=== PATIENT | male | born 1965 | race Caucasian/White ===

== ENCOUNTER 2019-10-02 10:45 | Inpatient (IN) ==
[2019-10-02] MEDS ORDERED: ASPIRIN 325 MG TABLET PO STA (11:33)
[2019-10-02] MEDS ORDERED: ENOXAPARIN 100 MG/ML SYRINGE SUBCUT STA (11:33)
[2019-10-02 11:50] LABS: Basophils # 0.1 10*3/uL (0.0-0.2); Basophils % 0.5 % (0.0-0.8); Eosinophils # 0.3 10*3/uL (0.0-0.87); Eosinophils % 2.4 % (0.00-10.9); Hematocrit 47.6 VOL% (42.0-52.0); Immature Granulocytes % 0.3 %; Immature Granulocytes Absolute 0.03 #; Lymphocytes # 3.8 10*3/uL (1.4-4.0); Lymphocytes % 34.1 % (21.2-54.2); Mean Corpuscular HGB Conc 33.6 GM/DL (32-36); Mean Corpuscular Volume 90.3 FL (87-102); Mean Platelet Volume 9.6 FL (9.6-12.0); Monocytes % 4.5 % (1.7-12.7); Neutrophils % 58.2 % (38.7-73.9); Platelet Count 223 T/CUMM (130-400); Red Blood Count 5.27 MC/CUMM (3.8-5.5); Red Cell Distribution Width 13.2 % (9.3-17.3)
[2019-10-02 11:55] LABS: PT Patient Result 10.4 SECS (9.6-12.2)
[2019-10-02 12:04] LABS: Albumin 3.3 G/DL (3.4-5.0); Bilirubin,Total 0.8 MG/DL (0.2-1.0); Calcium 8.5 MG/DL (8.5-10.1); Osmolality,Calculated 283.5 MOS/KG (273-304); Total Protein 6.7 G/DL (6.4-8.3)
[2019-10-02] MEDS ORDERED: ALBUTEROL/IPRATROPIUM 3 ML NEB RESP TX STA (12:18)
[2019-10-02] MEDS ORDERED: ONDANSETRON 4 MG/2 ML VIAL IV PRN (12:32)
[2019-10-02] MEDS ORDERED: ACETAMINOPHEN 325 MG TABLET PO PRN (12:32)
[2019-10-02] MEDS ORDERED: CALCIUM CARBONATE CHEW 500 MG TABLET PO PRN (12:39)
[2019-10-02] MEDS: ALBUTEROL/IPRATROPIUM 3 ML NEB RESP TX SCH ×2 (13:43→19:50)
[2019-10-02] MEDS ORDERED: DEXTROSE 10% 25 GM/250 ML BAG IV PRN (13:49)
[2019-10-02] MEDS ORDERED: GLUCAGON 1 MG VIAL IM PRN (13:49)
[2019-10-02] MEDS ORDERED: INFLUENZA VIRUS VACCINE 0.5 ML SYRINGE IM ONE (16:04)
[2019-10-02] MEDS: NICOTINE 14 MG/24 HR PATCH TRANSDERM SCH (16:42)
[2019-10-02] MEDS: methylPREDNISolone SOD SUC 40 MG/1 ML VIAL IV SCH (16:42)
[2019-10-02] MEDS: GABAPENTIN 600 MG TABLET PO SCH ×2 (16:42→22:10)
[2019-10-02] MEDS: INSULIN LISPRO 100 UNIT/ML SUBCUT SCH ×2 (18:46→22:17)
[2019-10-02 19:34] LABS: Troponin I 0.025 NG/ML (0.00-0.045)
[2019-10-02] MEDS ORDERED: LEVALBUTEROL 1.25 MG/3 ML NEB RESP TX PRN (21:10)
[2019-10-02] MEDS: DILTIAZEM 30 MG TABLET PO SCH (21:35)
[2019-10-02] MEDS: ATORVASTATIN 40 MG TABLET PO SCH (22:09)
[2019-10-03] MEDS: methylPREDNISolone SOD SUC 40 MG/1 ML VIAL IV SCH ×2 (02:55→15:13)
[2019-10-03 04:58] LABS: Basophils % 0.2 % (0.0-0.8); Eosinophils % 0.1 % (0.00-10.9); Hematocrit 45.6 VOL% (42.0-52.0); Immature Granulocytes % 0.4 %; Immature Granulocytes Absolute 0.06 #; Lymphocytes # 2.3 10*3/uL (1.4-4.0); Lymphocytes % 16.6 % (21.2-54.2); Mean Corpuscular HGB Conc 32.9 GM/DL (32-36); Mean Platelet Volume 9.7 FL (9.6-12.0); Monocytes % 2.4 % (1.7-12.7); Neutrophils % 80.3 % (38.7-73.9); Platelet Count 222 T/CUMM (130-400); Red Blood Count 5.01 MC/CUMM (3.8-5.5); Red Cell Distribution Width 13.2 % (9.3-17.3); White Blood Count 13.9 T/CUMM (4-12)
[2019-10-03 05:30] LABS: Calcium 8.7 MG/DL (8.5-10.1); Osmolality,Calculated 282.8 MOS/KG (273-304)
[2019-10-03] MEDS ORDERED: ASPIRIN EC 81 MG TABLET PO SCH (09:00)
[2019-10-03] MEDS ORDERED: METOPROLOL SUCCINATE XL 25 MG TABLET PO SCH (09:00)
[2019-10-03] MEDS: GABAPENTIN 600 MG TABLET PO SCH ×3 (09:09→20:44)
[2019-10-03] MEDS: PANTOPRAZOLE 40 MG TABLET PO SCH (09:10)
[2019-10-03] MEDS: DILTIAZEM 30 MG TABLET PO SCH (09:11)
[2019-10-03] MEDS: CLOPIDOGREL 75 MG TABLET PO SCH (09:12)
[2019-10-03] MEDS: INSULIN LISPRO 100 UNIT/ML SUBCUT SCH ×4 (09:12→20:45)
[2019-10-03] MEDS: FUROSEMIDE 40 MG TABLET PO SCH (09:12)
[2019-10-03] MEDS: NICOTINE 14 MG/24 HR PATCH TRANSDERM SCH (09:13)
[2019-10-03] MEDS: lisinopriL 10 MG TABLET PO SCH (09:15)
[2019-10-03] MEDS ORDERED: METOPROLOL SUCCINATE XL 25 MG TABLET PO ONE (11:09)
[2019-10-03] MEDS: APIXABAN 5 MG TABLET PO SCH ×2 (12:41→20:44)
[2019-10-03] MEDS ORDERED: METOPROLOL TARTRATE 5 MG/5 ML VIAL IV PRN (13:54)
[2019-10-03] MEDS ORDERED: ZALEPLON 5 MG CAPSULE PO PRN (20:34)
[2019-10-03] MEDS: ATORVASTATIN 40 MG TABLET PO SCH (20:44)
[2019-10-03] MEDS ORDERED: INSULIN GLARGINE 100 UNIT/ML SUBCUT SCH (21:00)
[2019-10-04] MEDS: methylPREDNISolone SOD SUC 40 MG/1 ML VIAL IV SCH (01:37)
[2019-10-04 04:44] LABS: Hematocrit 44.4 VOL% (42.0-52.0); Hemoglobin 14.9 GM/DL (14.0-18.0); Immature Granulocytes % 0.7 %; Immature Granulocytes Absolute 0.15 #; Lymphocytes # 2.7 10*3/uL (1.4-4.0); Lymphocytes % 12.9 % (21.2-54.2); Mean Corpuscular HGB Conc 33.6 GM/DL (32-36); Mean Corpuscular Volume 90.4 FL (87-102); Mean Platelet Volume 10.1 FL (9.6-12.0); Monocytes % 2.6 % (1.7-12.7); Neutrophils % 83.8 % (38.7-73.9); Platelet Count 222 T/CUMM (130-400); Red Blood Count 4.91 MC/CUMM (3.8-5.5); Red Cell Distribution Width 13.3 % (9.3-17.3); White Blood Count 20.6 T/CUMM (4-12)
[2019-10-04 05:13] LABS: Hypochromasia Slight; Lymphocytes 12 % (20-55); Platelet Estimate Normal; Segmented Neutrophils 85 % (50-85); Total Cells Counted 100
[2019-10-04 05:22] LABS: Calcium 8.9 MG/DL (8.5-10.1)
[2019-10-04] MEDS: GABAPENTIN 600 MG TABLET PO SCH (08:39)
[2019-10-04] MEDS: NICOTINE 14 MG/24 HR PATCH TRANSDERM SCH (08:40)
[2019-10-04] MEDS: PANTOPRAZOLE 40 MG TABLET PO SCH (08:40)
[2019-10-04] MEDS: lisinopriL 10 MG TABLET PO SCH (08:40)
[2019-10-04] MEDS: INSULIN LISPRO 100 UNIT/ML SUBCUT SCH ×2 (08:40→12:59)
[2019-10-04] MEDS: CLOPIDOGREL 75 MG TABLET PO SCH (08:40)
[2019-10-04] MEDS: FUROSEMIDE 40 MG TABLET PO SCH (08:40)
[2019-10-04] MEDS: APIXABAN 5 MG TABLET PO SCH (08:40)
[2019-10-04] MEDS ORDERED: METOPROLOL SUCCINATE XL 25 MG TABLET PO SCH (09:00)
[2019-10-04 12:02] VITALS: BP 136/83
== END 2019-10-04 13:00 | disposition home or self-care (01) | DRG 140 ==
LOC: N.EDINP 10:45 → N.ED 10:45 → N.4E 13:37 → N.TELES 21:10
PROVIDERS: ADMIT Internal Medicine; ATTEND Internal Medicine

== ENCOUNTER 2019-12-06 09:56 | Inpatient (IN) ==
[2019-12-06 12:10] LABS: Basophils # 0.1 10*3/uL (0.0-0.2); Basophils % 0.3 % (0.0-0.8); Eosinophils # 0.3 10*3/uL (0.0-0.87); Eosinophils % 1.7 % (0.00-10.9); Hematocrit 45.4 VOL% (42.0-52.0); Hemoglobin 14.9 GM/DL (14.0-18.0); Immature Granulocytes % 0.4 %; Immature Granulocytes Absolute 0.06 #; Lymphocytes # 3.4 10*3/uL (1.4-4.0); Lymphocytes % 23.6 % (21.2-54.2); Mean Corpuscular HGB Conc 32.8 GM/DL (32-36); Mean Corpuscular Volume 89.9 FL (87-102); Mean Platelet Volume 9.4 FL (9.6-12.0); Monocytes % 4.3 % (1.7-12.7); Neutrophils % 69.7 % (38.7-73.9); Platelet Count 218 T/CUMM (130-400); Red Blood Count 5.05 MC/CUMM (3.8-5.5); Red Cell Distribution Width 12.9 % (9.3-17.3); White Blood Count 14.4 T/CUMM (4-12)
[2019-12-06 12:30] LABS: Alanine Aminotransferase 29 U/L (16-61); Albumin 3.1 G/DL (3.4-5.0); Alkaline Phosphatase 98 U/L (45-117); Aspartate Amino Transferase 14 U/L (0-37); Blood Urea Nitrogen 9 MG/DL (7-18); Calcium 8.6 MG/DL (8.5-10.1); Estimated Glom Filtration Rate 128 ML/MIN; Glucose 224 MG/DL (74-106); Osmolality,Calculated 273.2 MOS/KG (273-304); Total Protein 6.8 G/DL (6.4-8.3)
[2019-12-06 13:19] LABS: Apearance,Urine CLOUDY (Clear); Bacteria,Urine Many /HPF (Few); Bilirubin,Urine Negative (Negative); Blood, Urine Large mg/dL (Negative); Glucose,Urine (UA) >=500 mg/dL (Negative); Ketones,Urine Negative (Negative); Mucus,Urine Occasional /LPF (Occasional); Nitrite,Urine Negative (Negative); Protein,Urine Negative; RBC,Urine 48 /HPF (0-4); Urine Color Yellow (Yellow); Urine Specific Gravity 1.015 (1.001-1.035); Urine Urobilinogen < 2.0 EU/DL (0.2-1.0); WBC,Urine 143 /HPF (0-6)
[2019-12-06] MEDS ORDERED: SODIUM CHLORIDE 0.9% 1,000 ML IV STA (13:28)
[2019-12-06] MEDS ORDERED: cefTRIAXone 1,000 MG in SODIUM CHLORIDE 0.9% 100 ML IV STA (13:28)
[2019-12-06 14:24] LABS: Barbiturates Screen,Urine Negative (Negative); Benzodiazepines Screen,Urine Negative (Negative); Cannabinoid Screen,Urine Negative (Negative); Opiate Screen,Urine Negative (Negative); Phencyclidine Screen,Urine Negative (Negative)
[2019-12-06] MEDS ORDERED: GLUCAGON 1 MG VIAL IM PRN (14:53)
[2019-12-06] MEDS ORDERED: ACETAMINOPHEN 325 MG TABLET PO PRN (14:53)
[2019-12-06] MEDS ORDERED: hydrALAZINE 20 MG/1 ML VIAL IV PRN (14:53)
[2019-12-06] MEDS ORDERED: DEXTROSE 10% 250 ML BAG IV PRN (14:53)
[2019-12-06] MEDS ORDERED: LACTULOSE 20 GM/30 ML UDCUP PO PRN (14:53)
[2019-12-06] MEDS ORDERED: ONDANSETRON 4 MG/2 ML VIAL IV PRN (14:53)
[2019-12-06 15:20] LABS: Risk Ratio 4.87; Thyroid Stimulating Hormone 3.27 uIU/ml (0.358-3.74)
[2019-12-06] MEDS: INSULIN REGULAR 100 UNIT/ML SUBCUT SCH ×2 (17:38→21:58)
[2019-12-06] MEDS: SODIUM CHLORIDE 0.9% 1,000 ML IV SCH (18:44)
[2019-12-06] MEDS: ALBUTEROL 2.5 MG/3 ML NEB RESP TX SCH (19:45)
[2019-12-06] MEDS ORDERED: ATORVASTATIN 40 MG TABLET PO SCH (21:00)
[2019-12-06] MEDS ORDERED: TAMSULOSIN 0.4 MG CAPSULE PO SCH (21:00)
[2019-12-06] MEDS ORDERED: ENOXAPARIN 40 MG/0.4 ML SYRINGE SUBCUT SCH (21:00)
[2019-12-06] MEDS: APIXABAN 5 MG TABLET PO SCH (22:00)
[2019-12-07] MEDS: ALBUTEROL 2.5 MG/3 ML NEB RESP TX SCH ×3 (01:00→12:56)
[2019-12-07 06:25] LABS: Basophils # 0.1 10*3/uL (0.0-0.2); Basophils % 0.3 % (0.0-0.8); Eosinophils # 0.2 10*3/uL (0.0-0.87); Eosinophils % 1.1 % (0.00-10.9); Hematocrit 39.7 VOL% (42.0-52.0); Hemoglobin 13.3 GM/DL (14.0-18.0); Immature Granulocytes % 0.3 %; Immature Granulocytes Absolute 0.05 #; Lymphocytes # 4.2 10*3/uL (1.4-4.0); Mean Corpuscular HGB Conc 33.5 GM/DL (32-36); Mean Platelet Volume 9.4 FL (9.6-12.0); Monocytes % 5.3 % (1.7-12.7); Platelet Count 203 T/CUMM (130-400); Red Blood Count 4.41 MC/CUMM (3.8-5.5); Red Cell Distribution Width 12.5 % (9.3-17.3); White Blood Count 16.9 T/CUMM (4-12)
[2019-12-07 06:45] LABS: Calcium 8.4 MG/DL (8.5-10.1); Osmolality,Calculated 275.8 MOS/KG (273-304)
[2019-12-07] MEDS: SODIUM CHLORIDE 0.9% 1,000 ML IV SCH ×2 (08:39→16:49)
[2019-12-07] MEDS ORDERED: PANTOPRAZOLE 40 MG TABLET PO SCH (09:00)
[2019-12-07] MEDS ORDERED: DUTASTERIDE 0.5 MG CAPSULE PO SCH (09:00)
[2019-12-07] MEDS ORDERED: cefTRIAXone 1,000 MG in SYRINGE 1 EACH IV SCH (09:00)
[2019-12-07] MEDS ORDERED: METOPROLOL SUCCINATE XL 25 MG TABLET PO SCH (09:00)
[2019-12-07] MEDS ORDERED: AMIODARONE 200 MG TABLET PO SCH (09:00)
[2019-12-07] MEDS: APIXABAN 5 MG TABLET PO SCH (09:53)
[2019-12-07] MEDS: INSULIN REGULAR 100 UNIT/ML SUBCUT SCH ×3 (09:53→16:38)
[2019-12-07 16:51] VITALS: BP 139/56
[2019-12-07] MEDS ORDERED: INSULIN NPH 100 UNIT/ML SUBCUT SCH (17:30)
== END 2019-12-07 18:55 | disposition home or self-care (01) | DRG 463 ==
LOC: N.ED 09:56 → N.EDINP 14:53 → N.5E 15:55
PROVIDERS: ADMIT Internal Medicine Cardiovascular Disease; ATTEND Internal Medicine Cardiovascular Disease